=== PATIENT | male | born 1965 | race Caucasian/White ===

== ENCOUNTER → 2021-01-31 14:24 | Outpatient (CLI) | payer BC, SELFPAY ==
--- NOTE | 2021-01-31 14:29 | XR_ITS ---
PROCEDURE: XR CHEST 2V CLINICAL HISTORY: TOBACCO ABUSE COMPARISON: No exams were available for comparison FINDINGS: The cardiomediastinal silhouette and pulmonary vascularity are within normal limits. The lungs are clear without infiltrates, suspicious nodules, or pleural effusions. No acute bony abnormalities. IMPRESSION: No acute findings. Dictated by: Jose Madrid MD 01/31/2021 15:21 Jose Madrid MD in [facility] 01/31/2021 15:21
== END ==
PROVIDERS: PCP Family Medicine; Visit Provider Family Medicine
DX: Z72.0 Tobacco use (principal)
CPT/HCPCS: 71046

== ENCOUNTER → 2021-09-30 12:05 | Outpatient (CLI) | payer BC, SELFPAY | PROVIDERS: Visit Provider Nurse Practitioner | DX: Z20.822 Contact with and (suspected) exposure to COVID-19 (principal) | CPT/HCPCS: C9803; U0003; U0005 ==

== ENCOUNTER → 2022-05-23 07:05 | Outpatient (CLI) | payer BC, SELFPAY ==
[2022-05-23 20:43] LABS: Basophils # 0.1 K/mm3 (0-0.2); Basophils % 1.3 % (0.1-2.0); Eosinophils # 0.3 K/mm3 (0.0-0.4); Eosinophils % 3.6 % (0.1-12.0); Hematocrit 48.2 % (42.0-52.0); Hemoglobin 15.2 g/dL (14.1-18.0); Lymphocytes # 2.6 K/mm3 (0.7-4.5); Lymphocytes % 32.1 % (10-50); Mean Corpuscular HGB Conc 31.5 g/dL (31.8-35.4); Mean Corpuscular Hemoglobin 30.4 pg (27.0-31.2); Mean Corpuscular Volume 96.6 fl (80-94); Mean Platelet Volume 9.3 fl (7.4-10.4); Monocytes # 0.5 K/mm3 (0.1-1.0); Monocytes % 6.2 % (1.7-9.3); Neutrophils # 4.7 K/mm3 (1.8-7.8); Neutrophils % 56.8 % (37.0-80.0); Platelet Count 321 K/mm3 (142-424); Red Blood Count 4.99 M/mm3 (4.60-6.20); Red Cell Distribution Width 13.6 % (11.5-17.5); White Blood Count 8.2 K/mm3 (4.8-10.8)
[2022-05-23 20:58] LABS: Alanine Aminotransferase 21 U/L (12-78); Albumin Level 4.2 g/dl (3.5-5.0); Albumin/Globulin Ratio 1.6 (1.1-1.8); Alkaline Phosphatase 159 U/L (38-126); Anion Gap 12.9 mEq/L (5-15); Aspartate Amino Transferase 23 U/L (17-59); Bilirubin,Total 0.5 mg/dl (0.2-1.3); Blood Urea Nitrogen 15 mg/dl (9-20); Calcium 9.9 mg/dl (8.4-10.2); Carbon Dioxide 29 mmol/L (22.0-30.0); Chloride 103 mmol/L (98-107); Estimated Glomerular Filt Rate 77 ml/min (>60); GFR (African American) 93 ML/MIN (>60); Globulin 2.7 g/dL (1.3-3.2); Glucose 82 mg/dl (74-100); Potassium 4.9 mmoL/L (3.5-5.1); Sodium 140 mmol/L (136-145); Total Protein,Serum 6.9 g/dl (6.3-8.2)
== END ==
PROVIDERS: PCP Family Medicine; Visit Provider Family Medicine
DX: I10 Essential (primary) hypertension (principal); Z95.5 Presence of coronary angioplasty implant and graft
CPT/HCPCS: 80053; 85025

== ENCOUNTER 2022-08-11 10:18 | Emergency (ER) | payer BC, SELFPAY ==
[2022-08-11 11:06] VITALS: BP 101/66; PULSE 83; RESP 17; TEMP 36.8; O2SAT 99; BMI 27.9
--- NOTE | 2022-08-11 11:31 | HMH.EDURI ---
Discharge Plan Disposition Chief Complaint: Upper Respiratory Infection Prescriptions Prescriptions: No Action allopurinol 100 mg tablet 100 mg PO DAILY Qty: 90 1RF alprazolam 0.25 mg tablet 0.25 mg PO BID Qty: 60 3RF atorvastatin 20 mg tablet 20 mg PO HS Qty: 90 1RF gabapentin 300 mg capsule 300 mg PO DAILY Qty: 90 1RF lansoprazole 30 mg capsule,delayed release(DR/EC) 30 mg PO DAILY Qty: 90 1RF metoprolol tartrate 25 mg tablet 25 mg PO BID Qty: 180 1RF valsartan 160 mg tablet 160 mg PO DAILY Qty: 90 1RF ropinirole 0.25 mg tablet 0.25 mg PO HS Qty: 30 2RF clopidogrel [Plavix] 75 mg tablet 75 mg PO DAILY venlafaxine 75 mg tablet 75 mg PO BID aspirin 81 MG tablet,chewable 81 mg PO DAILY Referrals Follow up/Referrals: Itz Chang MD [Primary Care Provider] - See instructions Discharge ED Provider: Antonio Lees URI/Sore Throat HPI General Chief Complaint: Upper Respiratory Infection Stated Complaint: cough, weakness, body aches Time Seen by Provider: 08/11/22 11:28 Mode of Arrival: Ambulatory Limitations: No Limitations Description of Symptoms (Recalled from ER Triage Doc. by RN): pateint states he has had cough, chills , and joint pain for 2 days. Denies fever. History of Present Illness HPI Narrative: Patient presents with 2-day history of body aches cough chills. He denies sore throat he denies vomiting or diarrhea he denies chest pain or shortness of breath. He describes symptoms as moderate and without exacerbating or alleviating factors. Related Data Home Medications Medication Instructions Recorded Confirmed aspirin 81 mg chewable tablet 81 mg PO DAILY heart 02/08/18 08/11/22 clopidogrel 75 mg tablet (Plavix) 75 mg PO DAILY thinner 08/11/22 08/11/22 venlafaxine 75 mg tablet 75 mg PO BID depressionm 08/11/22 08/11/22 Previous Rx's Medication Instructions Recorded allopurinol 100 mg tablet 100 mg PO DAILY Arthritis #90 tabs 05/23/22 alprazolam 0.25 mg tablet 0.25 mg PO BID anxiety #60 tabs 05/23/22 atorvastatin 20 mg tablet 20 mg PO HS Cholesterol #90 tabs 05/23/22 gabapentin 300 mg capsule 300 mg PO DAILY Pain #90 caps 05/23/22 lansoprazole 30 mg capsule,delayed 30 mg PO DAILY GERD #90 caps 05/23/22 release metoprolol tartrate 25 mg tablet 25 mg PO BID blood pressure #180 05/23/22 tabs ropinirole 0.25 mg tablet 0.25 mg PO HS restless legs #30 05/23/22 tabs valsartan 160 mg tablet 160 mg PO DAILY blood pressure #90 05/23/22 tabs Allergies Allergy/AdvReac Type Severity Reaction Status Date / Time No Known Allergies Allergy Verified 08/11/22 11:13 PFSH PFSH Medical History Erectile dysfunction GERD (gastroesophageal reflux disease) History of ASCVD Hyperlipemia Laceration of knee, left Restless legs syndrome Surgical History History of back surgery History of heart artery stent History of heart artery stent Family History Other Cancer Coronary artery disease Diabetes Hyperlipidemia Hypertension Social History Smoking Status: Current every day smoker tobacco type: cigarettes alcohol intake: never substance use type: denies use current occupational status: employed Travel in the last 8 weeks: None household members: spouse housing: house ROS Obtained: Yes All systems reviewed & no additional complaints except as documented Physical Exam General General appearance: alert and in no apparent distress Head Head exam: atraumatic, normocephalic and normal inspection Eye Eye exam: Present normal appearance, PERRL and EOMI ENT ENT exam: Present normal exam, normal oropharynx, mucous membranes moist, TM's normal bilaterally and normal external ear exam Neck Neck exam: Present normal i
[2022-08-11 12:47] LABS: Coronavirus 19, PCR Not Detected (NotDetected); Influenza B, PCR Not Detected (NotDetected)
[2022-08-11 13:41] LABS: Influenza A, PCR Detected (NotDetected)
[2022-08-11 13:58] VITALS: BP 108/75; PULSE 77; RESP 14; TEMP 37.2; O2SAT 99
== END 2022-08-11 13:58 | disposition home or self-care (01) ==
LOC: UTC 10:21 → ER 10:32
PROVIDERS: Emergency Provider Emergency Medicine; PCP Family Medicine
DX: J10.1 Influenza due to other identified influenza virus with other respiratory manifestations (principal)
CPT/HCPCS: 99212; C9803; G0463; U0003; U0005

== ENCOUNTER → 2022-12-15 23:57 | Outpatient (CLI) | payer BC, SELFPAY ==
[2022-12-15 19:14] LABS: Alanine Aminotransferase 20 U/L (12-78); Albumin Level 4.7 g/dl (3.5-5.0); Albumin/Globulin Ratio 1.7 (1.1-1.8); Alkaline Phosphatase 121 U/L (38-126); Anion Gap 11.5 mEq/L (5-15); Aspartate Amino Transferase 28 U/L (17-59); Bilirubin,Total 0.6 mg/dl (0.2-1.3); Blood Urea Nitrogen 12 mg/dl (9-20); Calcium 9.2 mg/dl (8.4-10.2); Carbon Dioxide 29 mmol/L (22.0-30.0); Chloride 102 mmol/L (98-107); Estimated Glomerular Filt Rate 99 ml/min (>60); GFR (African American) 120 ML/MIN (>60); Globulin 2.8 g/dL (1.3-3.2); Glucose 99 mg/dl (74-100); Potassium 4.5 mmoL/L (3.5-5.1); Sodium 138 mmol/L (136-145); Total Protein,Serum 7.5 g/dl (6.3-8.2)
[2022-12-15 20:02] LABS: Vitamin B12 704 pg/mL (239-931)
== END ==
PROVIDERS: PCP Family Medicine; Visit Provider Family Medicine
DX: F41.9 Anxiety disorder, unspecified (principal); Z86.79 Personal history of other diseases of the circulatory system
CPT/HCPCS: 80053; 82607; 84443

== ENCOUNTER 2023-12-04 21:08 | Outpatient (CLI) | payer BC, SELFPAY ==
[2023-12-04 19:38] LABS: Chloride 105 mmol/L (98-107); Potassium 5.3 mmoL/L (3.5-5.1); Sodium 139 mmol/L (136-145)
[2023-12-04 19:41] LABS: Alanine Aminotransferase 24 U/L (12-78); Albumin Level 4.3 g/dl (3.5-5.0); Albumin/Globulin Ratio 1.7 (1.1-1.8); Alkaline Phosphatase 139 U/L (38-126); Anion Gap 9.3 mEq/L (5-15); Aspartate Amino Transferase 32 U/L (17-59); Bilirubin,Total 0.4 mg/dl (0.2-1.3); Blood Urea Nitrogen 12 mg/dl (9-20); Calcium 9.4 mg/dl (8.4-10.2); Carbon Dioxide 30 mmol/L (22.0-30.0); Estimated Glomerular Filt Rate 99 ml/min (>60); GFR (African American) 120 ML/MIN (>60); Globulin 2.6 g/dL (1.3-3.2); Glucose 118 mg/dl (74-100); Total Protein,Serum 6.9 g/dl (6.3-8.2)
== END 2023-12-04 23:59 ==
LOC: LAB.DROPOF 21:09
PROVIDERS: PCP Family Medicine; Visit Provider Family Medicine
DX: M75.52 Bursitis of left shoulder (principal)
CPT/HCPCS: 80053

== ENCOUNTER 2024-01-18 11:00 | Outpatient (RCR) | payer OTHER, SELFPAY ==
--- NOTE | 2024-01-07 13:54 | HMH.OTOPEV ---
OT Inpatient Evaluation Rehab OT Outpatient Eval Start: 01/07/24 13:36 Freq: Status: Active Protocol: Document 01/07/24 13:40 ROXDAPHNIE (Rec: 01/07/24 13:54 GIGI [id number]) E-signed By Lauren Pruitt, OT Outpatient Therapy Subjective History Subjective History 58 year old male referred to skilled OP OT services for L shld pain. No images done at this time. Patient stated to have L shld pain for ~2 months . Patient has recieved two different steriod packs from PCP with given relief ~1-2 weeks. f/u with PCP on 01/08/24 . New diagnosis of cancer in past 12 No months? Chief Complaint Pain,Weakness Symptom Type Ache Symptoms Relieved By Nothing Symptoms Aggravated By Physical Activity Prior Functional Limitations None Current Functional Limitations Reaching,Lifting,Recreation Activity Symptom Description Constant and Continuous Level of pain today (0-10) 0 Pain scale - at its best (0-10) 0 Pain scale - at its worst (0-10) 5 Shoulder/Elbow Eval Shoulder Objective Measurements Shoulder ROM Left Shoulder Abduction Active Range of 80 Motion (degrees) Shoulder Flexion Active Range of Motion 80 (degrees) Query Text: Shoulder External Rotation Active Range 40 of Motion (degrees) Shoulder Internal Rotation Active Range 50 of Motion (degrees) pain with active ROM shoulder exam left standard Shoulder MMT Shoulder Abduction Strength Grade 3- Fair- Shoulder Extension Strength Grade 3- Fair- Shoulder Flexion Strength Grade 3- Fair- Shoulder Horizontal Abduction Strength 3- Fair- Grade Shoulder Horizontal Adduction Strength 3- Fair- Grade Infraspinatus/Teres Minor Strength Grade 3- Fair- Shoulder External Rotation Strength 3- Fair- Grade Shoulder Internal Rotation Strength 3- Fair- Grade Elbow Objective Measurements QuickDASH Activities Please rate your ability to do the following activities in the last week by selecting the number below the appropriate response. 1. Open a tight or new jar. Mild difficulty 2. Do heavy embedded software programmer (e.g., wash Mild difficulty hernandez, floors). 3. Carry a shopping bag or briefcase. Moderate difficulty 4. Wash your back. Moderate difficulty 5. Use a knife to cut food. Mild difficulty 6. Recreational activities in which you Moderate difficulty take some force or impact through your arm, shoulder, or hand (e.g., golf, hammering, tennis, etc.). 7. During the past week, to what extent Moderately has your arm, shoulder or hand problem interfered with your normal social activities with family, friends, neighbors or groups? 8. During the past week, were you Moderately limited limited in your work or other regular daily activites as a result of your arm, shoulder or hand problem? 9. Arm, shoulder or hand pain. Moderate 10. Tingling (pins and needles) in your None arm, shoulder or hand. 11. During the past week, how much Mild difficulty difficulty have you had sleeping because of the pain in your arm, shoulder or hand? Quick DASH 27 OT Outpatient Assessment Impairments Problems/Impairments Impaired Range of Motion, Impaired Strength,Subjective C /O Pain Prognosis Rehab Potential Good Clinical Impression Consistent with Diagnosis Yes Short Term Goals Number of Weeks 2 Increase Range of Motion Yes: Improve AROM of L UE shld flex: 120; abd: 120; er: 50; ir: 60 Increase Strength Yes: Improve L UE shld strength to 3 to 3+/5 throughout Decrease Subjective C/O Pain Yes: 4/10 pain at worst Patient to be Ind w/ HEP Yes: AAROM Patient to be Ind w/ Advanced HEP Yes: Strengthening Improve Quick Dash Score Yes: 25 Senior Living Goals Number of Weeks 4 Increase Range of Motion Yes: Improve AROM of L UE shld flex: 140; abd: 140; er: 70; ir: 70 Increase Strength Yes: Improve L UE shld strength to 3+ to 4-/5 throughout Decrease Subjective C/O Pain Yes: 3/10 pain at worst Patient to be Ind w/ HEP Yes: AROM Patient to be Ind w/ Advanced HEP Yes: Advance strengthening Improve Quick Dash Score Yes: 20 Outpatient Therapy Plan of Care Treatment Plan May Include Therapeutic Exercise Including Home Yes Exercise Program Manual Therapy Techniques Yes Therapeutic Activities to Return to Yes Previous Functional/Work Level Thermal Modalities Yes Electrical Stimulation Yes Ultrasound/Phonophoresis Yes Iontophoresis Yes Eval/Re-Eval Yes Aquatic Therapy Yes Frequency Times per week 1-2x/wk Duration Number of Weeks 4 weeks Addendums This patient is a candidate for social No or vocational rehab? Patient/Guardian verbally acknowledges Yes understanding of treatment program and consents to further treatment? Patient/Guardian verbally acknowledges Yes understanding of diagnosis, prognosis and goals for treatment? Eval Complexity OT Charge 16574 - Low Complexity PHYSICIAN CERTIFICATION: I certify the specified therapy services for Pranav D Tay are required, authorized, and reviewed every 30 days.
== END 2024-01-18 12:00 | disposition home or self-care (01) ==
LOC: OT 11:00
PROVIDERS: Visit Provider Family Medicine
DX: M25.512 Pain in left shoulder (principal); M75.52 Bursitis of left shoulder
CPT/HCPCS: 97110; 97165

== ENCOUNTER 2024-06-09 09:54 | Outpatient (CLI) | payer BC, SELFPAY | END 2024-06-09 23:59 | disposition home or self-care (01) | LOC: LAB.DROPOF 06-10 10:05 | PROVIDERS: PCP Nurse Practitioner; Visit Provider Nurse Practitioner | DX: R30.0 Dysuria (principal) | CPT/HCPCS: 87086 ==

== ENCOUNTER 2024-06-23 11:15 | Outpatient (CLI) | payer BC, SELFPAY ==
[2024-06-23 19:47] LABS: Basophils # 0.1 K/mm3 (0-0.2); Basophils % 1.3 % (0.1-2.0); Eosinophils # 0.4 K/mm3 (0.0-0.4); Eosinophils % 5.2 % (0.1-12.0); Hematocrit 46.6 % (42.0-52.0); Hemoglobin 15.5 g/dL (14.1-18.0); Lymphocytes # 2.4 K/mm3 (0.7-4.5); Lymphocytes % 32.4 % (10-50); Mean Corpuscular HGB Conc 33.3 g/dL (31.8-35.4); Mean Corpuscular Hemoglobin 31.2 pg (27.0-31.2); Mean Corpuscular Volume 93.6 fl (80-94); Mean Platelet Volume 9.1 fl (7.4-10.4); Monocytes # 0.4 K/mm3 (0.1-1.0); Monocytes % 5.7 % (1.7-9.3); Neutrophils # 4.1 K/mm3 (1.8-7.8); Neutrophils % 55.4 % (37.0-80.0); Platelet Count 240 K/mm3 (142-424); Red Blood Count 4.98 M/mm3 (4.60-6.20); Red Cell Distribution Width 13.8 % (11.5-17.5); White Blood Count 7.4 K/mm3 (4.8-10.8)
[2024-06-23 20:52] LABS: Alanine Aminotransferase 20 U/L (12-78); Albumin Level 4.2 g/dl (3.5-5.0); Albumin/Globulin Ratio 1.7 (1.1-1.8); Alkaline Phosphatase 108 U/L (38-126); Anion Gap 8.5 mEq/L (5-15); Aspartate Amino Transferase 26 U/L (17-59); Bilirubin,Total 0.7 mg/dl (0.2-1.3); Blood Urea Nitrogen 11 mg/dl (9-20); Calcium 9.6 mg/dl (8.4-10.2); Carbon Dioxide 30 mmol/L (22.0-30.0); Chloride 105 mmol/L (98-107); Chol/HDL Ratio 3.7 (1-3.5); Cholesterol 143 mg/dl (140-200); Estimated Glomerular Filt Rate 86 ml/min (>60); GFR (African American) 104 ML/MIN (>60); Globulin 2.5 g/dL (1.3-3.2); Glucose 105 mg/dl (74-100); HDL Cholesterol 39 mg/dl (40-60); Potassium 5.5 mmoL/L (3.5-5.1); Sodium 138 mmol/L (136-145); Total Protein,Serum 6.7 g/dl (6.3-8.2); Triglycerides 101 mg/dl (30-150); VLDL Cholesterol 20 mg/dL (0-40)
[2024-06-23 20:55] LABS: Creatinine,Urine Random 47 mg/dL (Not Estab.)
[2024-06-23 21:00] LABS: Microalbumin < 6.000 mg/L (0-16.7)
[2024-06-23 21:03] LABS: Direct LDL Cholesterol 81.77 mg/dL (100-129)
[2024-06-23 21:22] LABS: Prostate Specific Ag Screen 0.4 ng/ml (0.0-4.0)
[2024-06-23 21:42] LABS: Vitamin B12 932 pg/mL (239-931)
== END 2024-06-23 23:59 | disposition home or self-care (01) ==
LOC: LAB.DROPOF 06-24 10:01
PROVIDERS: PCP Nurse Practitioner; Visit Provider Nurse Practitioner
DX: E78.5 Hyperlipidemia, unspecified (principal); Z12.5 Encounter for screening for malignant neoplasm of prostate; K21.9 Gastro-esophageal reflux disease without esophagitis; R31.0 Gross hematuria; Z86.79 Personal history of other diseases of the circulatory system
CPT/HCPCS: 80050; 80053; 80061; 82043; 82570; 82607; 83036; 84443; 85025; G0103

== ENCOUNTER 2024-06-30 10:14 | Outpatient (CLI) | payer BC, SELFPAY ==
[2024-06-30 19:22] LABS: Chloride 106 mmol/L (98-107); Potassium 4.9 mmoL/L (3.5-5.1); Sodium 139 mmol/L (136-145)
[2024-06-30 19:25] LABS: Anion Gap 9.9 mEq/L (5-15); Blood Urea Nitrogen 14 mg/dl (9-20); Calcium 9.4 mg/dl (8.4-10.2); Carbon Dioxide 28 mmol/L (22.0-30.0); Estimated Glomerular Filt Rate 99 ml/min (>60); GFR (African American) 119 ML/MIN (>60); Glucose 106 mg/dl (74-100)
== END 2024-06-30 23:59 | disposition home or self-care (01) ==
LOC: LAB.DROPOF 07-01 10:14
PROVIDERS: PCP Nurse Practitioner; Visit Provider Nurse Practitioner
DX: E87.5 Hyperkalemia (principal)
CPT/HCPCS: 80048

== ENCOUNTER 2024-09-16 16:21 | Outpatient (CLI) | payer BC, SELFPAY ==
--- NOTE | 2024-09-16 16:41 | MR_ITS ---
PROCEDURE INFORMATION: Exam: MR Left Upper Extremity Joint Without and With Contrast; Shoulder Exam date and time: 09/16/2024 5:08 PM Age: 59 years old Clinical indication: Shoulder; Left; Patient HX: Pain x 6 months; Additional info: Left shoulder pain TECHNIQUE: Imaging protocol: Magnetic resonance imaging of the left upper extremity without and with contrast. Exam focused on the shoulder. Contrast material: ISOVUE; Contrast volume: 20 ml; Contrast route: IV; COMPARISON: CR XR CHEST 2V 01/31/2021 2:31 PM FINDINGS: Bones/joints: There is moderate AC joint arthrosis with fluid like signal changes along with enhancement involving the opposing bone margins that has been associated with symptomatology in raises possibility of distal clavicular osteolysis. There is a small focus of bone marrow edema along the lesser tuberosity likely degenerative in nature 2nd biomechanical friction. Glenoid labrum: There is a complex SLAP tear extending both anteriorly into the anterior labrum extending to the mid glenoid and posteriorly into the posterosuperior labrum. There is an adjacent 2.5 x 1.1 cm paralabral cyst adjacent to the posterosuperior labrum extending into the spingoglenoid notch. Supraspinatus tendon: There is a small partial-thickness insertional tear involving the supraspinatus appears intrasubstance. Infraspinatus tendon: Unremarkable. No evidence of tear. Subscapularis tendon: There is a partial-thickness insertional tear involving the subscapularis tendon best seen in the axial plane. Teres minor tendon: Unremarkable. No evidence of tear. Tendon of biceps brachii: There is tendinopathy with partial-thickness intrasubstance longitudinal tear of the biceps tendon. Glenohumeral ligaments: Unremarkable. Soft tissues: Unremarkable. IMPRESSION: 1. Complex SLAP tear extending into the anterior superior and posterosuperior labrum with associated 2.5 x 1.1 cm paralabral cyst adjacent to the posterior labrum extending into the spinoglenoid notch. 2. Tendinopathy with small partial-thickness tears involving the supraspinatus tendon, subscapularis tendon and biceps tendon. 3. Pronounced AC joint arthrosis with accompanying fluid-like signal changes and enhancement that has been associated with symptomatology.
[2024-09-16 16:48] LABS: Blood Urea Nitrogen 8 mg/dl (9-20); Estimated Glomerular Filt Rate 86 ml/min (>60); GFR (African American) 104 ML/MIN (>60)
[2024-09-16] MEDS: SODIUM CHLORIDE 0.9% 10ML SYR (RAD ONLY) 10 ML IV (17:49)
[2024-09-16] MEDS: GADOTERIDOL INJ 20ML SYRINGE 20 ML IV (17:49)
== END 2024-09-16 23:59 | disposition home or self-care (01) ==
LOC: RAD 16:22
PROVIDERS: PCP Family Medicine; Visit Provider Family Medicine
DX: M25.512 Pain in left shoulder (principal); Z95.5 Presence of coronary angioplasty implant and graft; G89.29 Other chronic pain
CPT/HCPCS: 36415; 73223; 82565; 84520; A9576

== ENCOUNTER 2025-05-12 13:07 | Outpatient (CLI) | payer BC, SELFPAY ==
--- OUTSIDE RECORDS SUMMARY | 2025-05-12 17:45 | XMS_ITS | Encounter Summary ---
Author Organization [facility] Address [address] [place] [address] Care Team Providers Care Industrial Diamond Polisher Name Role Phone Bruno Chang MD Primary Care Provider [phone] Reason for Referral * MRI/CAT Scan (Routine) - Pending Review Specialty Diagnoses / Procedures Referred By Contac t Referred To Contact Radiology Diagnoses Calcific tendinitis of right shoulder Procedures MRI SHOULDER RIGHT WO CONTRAST Stoney Vasquez APRN [address] [place] [address] Phone: tel: fax: Referral ID Status Reason Start Date Expiration Date V isits Requested Visits Authorized [id number] Pending Review 05/12/2025 05/12/2026 1 1 Reason for Visit * Reason Comments Pain Encounter Details Date Type Department Care Team (Late st Contact Info) Description 05/12/2025 5:45 PM EDT Office Visit [facility] [place] [address] Stoney Vasquez APRN [address] [place] [address] Calcific tendinitis of right shoulder (Primary Dx) [...] of this encounter Progress Notes * Stoney VasquezCADE - 05/12/2025 5:45 PM EDT Images from [...] the affected shoulder. Additionally, the patient sought attending ambulatory care, where he was informed that his shoulder [...] 2 steroid injections, oral steroids, home exercises, attending ambulatory care (without significant improvement) - MRI will be ordered to confirm diagnosis and check for underlying rotator cuff tear - MRI results will guide further treatment options (including surgery or less aggressive interventions) - MRI will be scheduled, and patient will be contacted by editorial assistant to arrange appointment - Advised to [...] cuff insertion site Please note that this nursing admin was created using voice recognition software. Any errors are unintentional and may be due to voice recognition nursing admin. The provider informed the patient (or legal circulation sales representative) on the use of the ambient listening artificial intelligence tool, [employer] to obtain consent to its use. It [...] of such information, the patient (or legal circulation sales representative), and each individual in attendance with the patient, consented to the use of the AI tool. Stoney Vasquez APRN documented in this encounter Plan of Treatment Upcoming Encounters Date Type Department Care Team (Late st Contact Info) Description 07/17/2025 1:00 PM EDT Office Visit [facility] [address] [place] [phone] Beto Siegel MD [address] [place] [id number] Scheduled Orders Name Type Priority Associated Diagnoses Orde r Schedule MRI SHOULDER RIGHT WO CONTRAST Imaging Routine Calcific tendinitis of right shoulder 1 Occurrences starting 05/12/2025 until 05/12/2026 [place] SERVICES PROVIDED OFFICE OTH/THN REG SCHED HOURS [place] Charge Routine Calcific tendinitis of right shoulder Ordered: 05/12/2025 documented as of this encounter Results * XR SHOULDER RIGHT 3 VIEWS (05/12/2025 5:59 PM EDT) Narrative GenericuserMatthew - 05/12/2025 5:59 PM EDT Please see physician's note from office encounter for x-ray imaging result Stoney Vasquez APRN IMG DIAGNOSTIC IMAGING ORDERAB LES Final Result documented in this encounter Visit Diagnoses Diagnosis Calcific tendinitis of right shoulder- Primary Calcifying tendinitis of shoulder Right shoulder pain, unspecified chronicity documented in this encounter Care Teams Industrial Diamond Polisher Relationship Specialty Start Date End Date Bruno Chang MD [address] [place] [address] [address] [place] [address] PCP - General Family Medicine 02/19/12 documented as of this encounter
--- OUTSIDE RECORDS SUMMARY | 2025-05-12 18:00 | XMS_ITS | Encounter Summary ---
Author Organization [facility] Address [address] [place] [address] Care Team Providers Care Exceptional Children Teacher Name Role Phone Bruno Chang MD Primary Care Provider [phone] [phone] Encounter Details Date Type Department Care Team (Latest Contact Info) Description 05/12/2025 6:00 PM EDT Ancillary Procedure [address] [id number] Stoney Vasquez APRN [address] [place] [phone] Right shoulder pain, unspecified chronicity Social History Tobacco Use Types Packs/Day Years [...] on file documented as of this encounter Plan of Treatment Upcoming Encounters Date Type Department Care Team (Late st Contact Info) Description 07/17/2025 1:00 PM EDT Office Visit [facility] [address] [place] [address] Beto Siegel MD [address] [place] [phone] documented as of this encounter Procedures Procedure Name Priority Date/Time Associated Diagnosis Comments XR SHOULDER RIGHT 3 VIEWS Routine 05/12/2025 5:59 PM EDT Right shoulder pain, unspecified chronicity documented in this encounter Results * XR SHOULDER RIGHT 3 VIEWS (05/12/2025 5:59 PM EDT) Narrative Genericuser, Matthew - 05/12/2025 5:59 PM EDT Please see physician's note from office encounter for x-ray imaging result Stoney Vasquez APRN IMG DIAGNOSTIC IMAGING ORDERAB LES Final Result documented in this encounter Visit Diagnoses Diagnosis Right shoulder pain, unspecified chronicity documented in this encounter Care Teams Exceptional Children Teacher Relationship Specialty Start Date End Date Bruno Chang MD [address] [place] [address] [address] [place] [phone] PCP - General Family Medicine 02/19/12 documented as of this encounter
[2025-05-12 20:01] LABS: Albumin Level 4.2 g/dl (3.5-5.0); Chloride 104 mmol/L (98-107)
[2025-05-12 20:02] LABS: Potassium 4.8 mmoL/L (3.5-5.1); Sodium 141 mmol/L (136-145)
[2025-05-12 20:04] LABS: Blood Urea Nitrogen 12 mg/dl (9-20); Creatinine,Serum 0.70 mg/dl (0.66-1.25); Estimated Glomerular Filt Rate 115 ml/min (>60); GFR (African American) 139 ML/MIN (>60)
[2025-05-12 20:05] LABS: Alanine Aminotransferase 17 U/L (12-78); Albumin/Globulin Ratio 1.7 (1.1-1.8); Alkaline Phosphatase 105 U/L (38-126); Anion Gap 11.8 mEq/L (5-15); Aspartate Amino Transferase 24 U/L (17-59); Bilirubin,Total 0.5 mg/dl (0.2-1.3); Calcium 9.6 mg/dl (8.4-10.2); Carbon Dioxide 30 mmol/L (22.0-30.0); Globulin 2.5 g/dL (1.3-3.2); Glucose 86 mg/dl (74-100); Total Protein,Serum 6.7 g/dl (6.3-8.2)
--- OUTSIDE RECORDS SUMMARY | 2025-05-13 12:38 | XMS_ITS | Clinical Summary ---
Author Organization [facility] Address [address] [place] [address] Care Team Providers Care Student Success Advisor Name Role Phone Provider, Unknown Primary Care Provider Unavaila ble Allergies No known active allergies Medications ticagrelor (BRILINTA) 90 mg Tablet Take 90 mg by mouth 2 times daily. Active atorvastatin (LIPITOR) 40 mg Tablet Take 40 mg by mouth nightly. Active allopurinol (ZYLOPRIM) 100 mg tablet Take 50 mg by mouth 2 times daily. Active ALPRAZolam (XANAX) 0.25 mg tablet Take 0.25 mg by mouth 2 times daily. Take 1 tab in AM and 2 tabs at night Active aspirin 81 mg tablet Take 81 mg by mouth daily. Active gabapentin (NEURONTIN) 300 mg capsule Take 300 mg by mouth nightly. Active lansoprazole (PREVACID) 30 mg Capsule, Delayed Release(E.C.) Take 30 mg by mouth daily. Active glucosamine/cho ndr gramajo A sod (OSTEO BI-FLEX PO) Take by mouth. Take 1 tab by mouth daily Active pramipexole (MIRAPEX) 1 mg Tablet Take 1 mg by mouth nightly. Active traZODone (DESYREL) 50 mg tablet Take 50 mg by mouth nightly at bedtime. Active venlafaxine (EFFEXOR) 75 mg tablet Take 75 mg by mouth 2 times daily. Active losartan (COZAAR) 50 mg Tablet Take 1 Tab by mouth daily. 12/06/2018 Active metoprolol succinate (TOPROL) 25 mg XL tablet Take 1 Tab by mouth daily. 30 Tab 3 12/07/2018 Active Active Problems Problem Noted Date Diagnosed Date Syncope 12/05/2018 Family History Medical History Relation Name Comments Heart Problems Maternal Grandfather Heart Problems Maternal Grandmother Stroke Paternal Grandfather Stroke Paternal Grandmother Relation Name Status Comments Maternal Grandfather Maternal Grandmother Paternal Grandfather Paternal Grandmother Social History Tobacco Use Types Packs/Day Years Used Date Smoking Tobacco: Every Day Cigarettes 1 35 Smokeless Tobacco: Never Alcohol Use Standard Drinks/Week Comments No 0 (1 standard drink = 0.6 oz pur e alcohol) Sex and Gender Information Value Date Recorded Sex Assigned at Not on file Legal Sex Male 3:18 PM EDT Gender Identity Not on file Sexual Orientation Not on file Last Filed Vital Signs Vital Sign Reading Time Taken Comments Blood Pressure 116/52 12/06/2018 11:13 AM EDT Pulse 76 12/06/2018 11:13 AM EDT Temperature 36.7 C (98.1 F) 12/06/2018 11:13 AM EDT Respiratory Rate 16 12/06/2018 11:13 AM EDT Oxygen Saturation 93% 12/06/2018 11:13 AM EDT Inhaled Oxygen Concentration - - Weight 86.9 kg (191 lb 9.6 oz) 12/05/2018 6:15 P M EDT Height 182.9 cm (6') 12/05/2018 6:15 PM EDT Body Mass Index 25.99 12/05/2018 6:15 PM EDT Plan of Treatment Not on file Insurance ANTHEM ANTHEM Advance Directives For more information, please contact: [phone] * Full Code (Latest Code Status on File) Date Activated Date Inactivated Comments 12/05/2018 6:30 PM Care Teams Student Success Advisor Relationship Specialty Start Date End Date Provider, Unknown PCP - General 12/05/18
--- OUTSIDE RECORDS SUMMARY | 2025-05-13 12:38 | XMS_ITS | Clinical Summary ---
Author Organization [facility] Address [address] [address] Care Team Providers Care Tugboat Mate Name Role Phone Unavailable Primary Care Provider Unavailabl e Social History Tobacco Use Types Packs/Day Years Used Date Smoking Tobacco: Never Assessed Sex and Gender Information Value Date Recorded Sex Assigned at Not on file Legal Sex Male 9:52 PM EDT Gender Identity Not on file Sexual Orientation Not on file Plan of Treatment Health Maintenance Due Date Last Done Comments Hepatitis C Screening 1965 DTap,Tdap,and Td (1 - Tdap) 01/26/1975 Colonoscopy 01/26/2009 PSA YEARLY 01/26/2014 Pneumococcal 50+ (1 of 1 - PCV) 01/26/2014 Shingrix (#1) 01/26/2014 Influenza Vaccine (#1) 2025 RSV Vaccine (60+ or ) (1 - 1-dose 75+ series) 01/26/2039 HPV Aged Out No longer eligi ble based on patient's age to complete this topic Meningococcal conjugate terrell nt 4 (MCV4) Aged Out No longer eligible b ased on patient's age to complete this topic RSV Immunization (<20 months) Aged Out No longer eligible based on patient's age to complete this topic
--- OUTSIDE RECORDS SUMMARY | 2025-05-13 12:38 | XMS_ITS | Encounter Summary ---
Author Organization [facility] Address [address] [place] [address] Care Team Providers Care Bookkeeping Clerk Name Role Phone Provider, Unknown Primary Care Provider Unavaila ble Encounter Details Date Type Department Care Team (Late st Contact Info) Description 12/05/2018 [facility] [address] [place], [place] [address] Dominic Wray MD [address] [address] Social History Tobacco Use Types Packs/Day Years [...] as of this encounter Plan of Treatment Not on file documented as of this encounter Visit Diagnoses Not on filedocumented in this encounter Care Teams Bookkeeping Clerk Relationship Specialty Start Date End Date Provider, Unknown PCP - General 12/05/18 documented as of this encounter
--- OUTSIDE RECORDS SUMMARY | 2025-05-13 12:38 | XMS_ITS | Clinical Summary ---
Author Organization [facility] Address [address] [facility] [place] [address] Phone Care Team Providers Care Public Health Aides Teacher Name Role Phone Bruno Chang MD Primary Care Provider [phone] Allergies No known active allergies Medications allopurinol (ZYLOPRIM) 100 mg tablet Take 50 mg by mouth 2 times daily. Active ALPRAZolam (XANAX) 0.25 mg tablet Take 0.25 mg by mouth. Takes 1 tab in AM and 2 tabs at night Active pramipexole (MIRAPEX) 1 mg Oral Tablet Take 1 mg by mouth nightly. Active aspirin 81 mg Oral Tablet, Chewable Take 1 Tab by mouth daily. 6 Active gabapentin (NEURONTIN) 300 mg Oral Capsule Take 300 mg by mouth nightly. Active losartan (COZAAR) 50 mg Oral Tablet Take 25 mg by mouth daily. Active glucosamine/chondr gramajo A sod (OSTEO BI-FLEX ORAL) Take 1 Tab by mouth daily. Active venlafaxine (EFFEXOR) 75 mg Oral Tablet Take 75 mg by mouth 2 times daily. Active cyanocobalamin 1,000 mcg Oral Tablet Take 1,000 mcg by mouth daily. Active nitroGLYCERIN (NITROSTAT) 0.4 mg SL Tablet, SublingualIndicatio ns:NSTEMI (non-ST elevated myocardial infarction) (HCC),CAD, multiple vessel DISSOLVE 1 TABLET UNDER THE TONGUE NEEDED FOR CHEST PAIN. REPEAT EVERY 5 MINUTES 3 TIMES. IF NO RELIEF GO TO ER. 25 Tablet 1 4 Active clopidogreL (PLAVIX) 75 mg Oral TabletIndications:A SHD (arteriosclerotic heart disease) Take 1 Tablet by mouth once daily. 90 Tablet 1 5 Active carvediloL (COREG) 6.25 mg Oral TabletIndications:I schemic cardiomyopathy Take 1 Tablet by mouth twice daily. 200 Tablet 1 5 Active atorvastatin (LIPITOR) 40 mg Oral Tablet Take 1 Tablet by mouth nightly. 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 H/O protein S deficiency 12/12/2018 Anxiety 06/02/2016 Depression 06/02/2016 Hyperuricemia 06/02/2016 Overview (06/02/2016): On Allopurinol Denies Dx or Hx of Sxs of Gout Primary osteoarthritis involving multiple joints 06/02/2016 Restless leg syndrome 06/02/2016 Overview (06/02/2016): On pramipexole Primary insomnia 06/02/2016 Tobacco abuse 06/02/2016 Overview (06/02/2016): 1 ppd since age 15 Refuses to quit 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 06/02/2016 Essential hypertension 06/01/2016 NSTEMI (non-ST elevated myocardial infarction) 0 06/01/2016 Overview (06/01/2016): 06/01/16 CAD (coronary artery disease) 05/18/2016 Overview (03/10/2019): 12/2018: Normal regular stress test Iliac artery bleed, right Acute [place], inferior wall Cardiac arrest with ventricular fibrillation PEA (Pulseless electrical activity) ASHD (arteriosclerotic heart disease) Lactic acidosis Leukocytosis Aspiration pneumonia of right upper lobe Encounters Date Type Department Care Team Description 05/12/2025 6:00 [place] [address] Stoney Vasquez APRN Right shoulder pain, unspecified chronicity 05/12/2025 5:45 PM EDT Office Visit [facility] [place] [address] Stoney Vasquez APRN Calcific tendinitis of right shoulder (Primary Dx) 03/02/2025 [place] [address] Beto Siegel MD Medication Refill from Last 3 Months Immunizations Immunization Administration Dates Next Due Td, Unspecified Formulation 05/30/2013 Surgical History Surgery Date Site/Laterality Comments THROMBECTOMY 06/02/2016 Right REPAIR RIGHT FEMORAL ARTERY; Surgeon: Saravanan Garcias MD; Location: [facility] OR; Service: Vascular DENTAL SURGERY Full upper denture , bridge x 2 on bottom BACK SURGERY x 2 for herniated discs lower back KNEE ARTHROSCOPY 07/04/2018 Left LEFT KNEE ARTHROSCOPY PARTIAL LATERAL MENISCECTOMY, CHONDROPLASTY MEDIAL FEMORAL CONDYLE; Surgeon: Ellis Hernández MD; Location: [facility]; Service: Orthopedics KNEE SURGERY meniscus 2018 CORONARY ANGIOPLASTY WITH STENT PLACEMENT 11/28/[address] Wayne: Occlusion of proximal RCA treated with LEX. Patent LAD stent. Severe elevation of LVEDP-left ventriculography not performed. CORONARY ANGIOPLASTY WITH STENT PLACEMENT 11/29/[address] Wayne: Subacute stent thrombosis treated with thrombectomy, additional PTCA, LEX x 2. Elevated left heart filling pressures with preserved cardiac output. Moderate LV dysfunction with PB AK. CORONARY ANGIOPLASTY WITH STENT PLACEMENT 06/02/2016 Dr Bailey: Critical stenosis mid LAD with successful PCI using a drug eluting stent,Moderately diminished LV systolic function with an ischemic cardiomyopathy Medical History Medical History Date Comments Depression Gout Hypertension Echo 04/16/19: EF 45-50% LV wall thickness is normal, RV normal, RA normal, LA normal, MV mild mitral regurg, TV normal, PV trace to mild regurg, A normal CAD (coronary artery disease) 05/2016: Normal regular stress test Smoker 1 PPD since age 13 Hyperlipidemia [place] (myocardial infarction) (HCC) 2016 had stent x 1 for this Angina pectoris 2015 none since [place] in 2015 Arthritis carine knees Full dentures Full upper dentu re , bridge x 2 on bottom Dental bridge present Full upper denture , bridge x [address] elevation myocardia l infarction (STEMI) of inferior wall (HCC) 11/2018 NSTEMI with LEX LAD Family History Medical History Relation Name Comments Heart Attack Father High Blood Pressure Father High Cholesterol Father Heart Attack Maternal Grandfather Heart Attack Maternal Grandmother No Known Problems Mother Stroke Paternal Grandfather Stroke Paternal Grandmother Anesth Problems Neg Hx Relation Name Status Comments Brother Alive Father Alive Maternal Grandfather Maternal Grandmother Mother Paternal Grandfather Paternal Grandmother Social History Tobacco Use Types Packs/Day Years Used Date Smoking Tobacco: Every Day Cigarettes 1 47.7 Started: [birth year]/1977 Smokeless Tobacco: Never Tobacco Cessation:Ready to Q uit: Not Asked; Counseling Given: Not Answered Alcohol Use Standard Drinks/Week Comments No 0 (1 standard drink = 0.6 oz pur e alcohol) Sex and Gender Information Value Date Recorded Sex Assigned at Not on file Legal Sex Male 3:28 AM EDT Gender Identity Not on file Sexual Orientation Not on file Obstetrics History Last Filed Vital Signs Vital Sign Reading Time Taken Comments Blood Pressure 124/72 07/25/2024 1:04 PM EST Pulse 88 07/25/2024 1:04 PM EST Temperature 36.2 C (97.2 F) 06/21/2020 7:57 AM EDT Respiratory Rate 14 06/21/2020 7:57 AM EDT Oxygen Saturation 98% 07/25/2024 1:04 PM EST Inhaled Oxygen Concentration - - Weight 87.1 kg (192 lb) 07/25/2024 1:04 PM EST Height 182.9 cm (6') 07/25/2024 1:04 PM EST Body Mass Index 26.04 07/25/2024 1:04 PM EST Plan of Treatment Upcoming Encounters Date Type Department Care Team (Late st Contact Info) Description 07/17/2025 1:00 PM EDT Office Visit [facility] [address] [place] [address] Beto Siegel MD [address] [place] [address] Health Maintenance Due Date Last Done Comments Annual Wellness Exam 01/26/1967 Hepatitis C Screening 01/26/1982 Pneumococcal Vaccine 50+ (1 of 2 - PCV) 01/26/1983 Cologuard 01/26/2009 Colon Cancer Screening 01/26/2009 Colonoscopy 01/26/2009 FIT 01/26/2009 Sigmoidoscopy 01/26/2009 Virtual Colonography 01/26/2009 DTaP/TDaP/Td (1 - Tdap) 05/31/2013 05/30/2013 Low Dose Lung Cancer Screening 01/26/2014 Zoster (1 of 2) 01/26/2014 RSV or 60+ (1 - Ris k 60-74 years 1-dose series) 2024 COVID-19 Vaccine (4 - 2023-2 5 season) 2024 08/22/2021, 11/06/2020, 10/07/2020 Influenza Vaccine (#1) 2025 Hepatitis B Vaccine Aged Out No longe r eligible based on patient's age to complete this topic Meningococcal B Vaccine Aged Out No l onger eligible based on patient's age to complete this topic Medical Devices Implanted Type Area Coloring Room Worker Device Identifier Shelf Expiration Date Model / Serial / Lot Stent Xience Alpine Drug Eluting 3.5mm X 12mm - [id number] Implanted:Qty: 1 on 06/02/2016 by Sergio Bailey MD at [facility] NA: [facility] LAB:VASC DEV [id number] / / [id number] Stent Xience Lillian Evrlmus Eluting Coronary 4.00mm X 33mm - [id number] Implanted:Qty: 1 on 11/28/2018 by John Wayne MD at [facility]: [facility]CA [facility]:VASC DEV [id number] / / [id number] Stent Xience Lillian Evrlmus Eluting Coronary 4.00mm X 23mm - [id number] Implanted:Qty: 1 on 11/29/2018 by John Wayne MD at [facility]: [facility] [employer]:VASC DEV [id number] / / [id number] Stent Xience Lillian Evrlmus Eluting Coronary 4.00mm X 18mm - [id number] Implanted:Qty: 1 on 11/29/2018 by John Wayne MD at [facility] N/A: RCA [place] LAB:VASC DEV [id number] / / [id number] Procedures Procedure Name Priority Date/Time Associated Diagnosis Comments XR SHOULDER RIGHT 3 VIEWS Routine 05/12/2025 5:59 PM EDT Right shoulder pain, unspecified chronicity from Last 3 Months Results * XR SHOULDER RIGHT 3 VIEWS (05/12/2025 5:59 PM EDT) Narrative Matthew Montemayor - 05/12/2025 5:59 PM EDT Please see physician's note from office encounter for x-ray imaging result Stoney Vasquez APRN IMG DIAGNOSTIC IMAGING ORDERAB LES Final Result from Last 3 Months Insurance [facility] PPO GENERIC WORKERS' COMP GENERIC WORKERS' COMP ANTHEM PPO ANTHEM PPO [place] PPO Advance Directives For more information, please contact: [phone] * Full Code (Latest Code Status on File) Date Activated Date Inactivated Comments 11/29/2018 12:07 AM 12/04/2018 6:07 PM * Full Code Date Activated Date Inactivated Comments 07/04/2018 4:43 PM 07/04/2018 10:02 PM * Full Code Date Activated Date Inactivated Comments 06/01/2016 11:49 PM 06/04/2016 7:26 PM Care Teams Public Health Aides Teacher Relationship Specialty Start Date End Date Bruno Chang MD [address] [place] [address] PCP - General Family Medicine 02/19/12
--- OUTSIDE RECORDS SUMMARY | 2025-05-13 12:38 | XMS_ITS | Referral Summary ---
Author Organization [facility] Address [address] [place] [address]. [place] [address] Care Team Providers Care Cleater Name Role Phone Unavailable Primary Care Provider Unavailabl e Social History Tobacco Use Types Packs/Day Years Used Date Smoking Tobacco: Never Assessed Sex and Gender Information Value Date Recorded Sex Assigned at Not on file Legal Sex Male 9:52 PM EDT Gender Identity Not on file Sexual Orientation Not on file Plan of Treatment Not on file
--- OUTSIDE RECORDS SUMMARY | 2025-05-13 12:38 | XMS_ITS | Encounter Summary ---
Author Organization [facility] Address [address] [place] [address] Care Team Providers Care Kaiawhina Name Role Phone Provider, Unknown Primary Care Provider Unavaila ble Encounter Details Date Type Department Care Team (Late st Contact Info) Description 12/05/2018 [facility] [address] [place], [place] [id number] Katie Guerrero RN [address] [phone] Social History Tobacco Use Types Packs/Day Years [...] on filedocumented in this encounter Care Teams Kaiawhina Relationship Specialty Start Date End Date Provider, Unknown PCP - General 12/05/18 documented as of this encounter
== END 2025-05-12 23:59 | disposition home or self-care (01) ==
LOC: LAB.DROPOF 05-13 12:34
PROVIDERS: PCP Family Medicine; Visit Provider Family Medicine
DX: Z04.89 Encounter for examination and observation for other specified reasons (principal); Z86.79 Personal history of other diseases of the circulatory system
CPT/HCPCS: 80053

== ENCOUNTER 2025-05-19 06:48 | Outpatient (CLI) | payer BC, SELFPAY ==
--- OUTSIDE RECORDS SUMMARY | 2025-05-12 17:45 | XMS_ITS | Encounter Summary ---
Author Organization [facility] Address [address] [place] [address] Care Team Providers Care Tar Processing Technician Name Role Phone Bruno Chang MD Primary Care Provider [phone] Reason for Referral * MRI/CAT Scan (Routine) - AFF Authorized Specialty Diagnoses / Procedures Referred By Contac t Referred To Contact Orthopedic Surgery Diagnoses Calcific tendinitis of right shoulder Procedures MRI SHOULDER RIGHT WO CONTRAST Stoney Vasquez APRN [address] [place] [address] Phone: tel: fax: [place] [address] Phone: tel: fax: Referral ID Status Reason Start Date Expiration Date Visits Requested Visits Authorized [id number] AFF Authorized 05/12/2025 05/12/2026 1 1 Reason for Visit * Reason Comments Pain Encounter Details Date Type Department Care Team (Late st Contact Info) Description 05/12/2025 5:45 PM EDT Office Visit [facility] [place] [address] Stoney Vasquez APRN [address] [phone] Calcific tendinitis of right shoulder (Primary Dx) Social History Tobacco Use Types Packs/Day Years Used Date Smoking Tobacco: Every Day Cigarettes 1 47.7 Started: 09/17/1977 Smokeless Tobacco: Never Alcohol Use Standard Drinks/Week Comments No 0 (1 standard drink = 0.6 oz pur e alcohol) Sex and Gender Information Value Date Recorded Sex Assigned at Not on file Legal Sex Male 3:28 AM EDT Gender Identity Not on file Sexual Orientation Not on file documented as of this encounter Progress Notes * Stoney Vasquez APRN - 05/12/2025 5:45 PM EDT Images from the original note were not included. Subjective: 05/12/2025 Pranav Cross 60 y.o. male. HPI: History of Present Illness The patient, a 60-year-old male, presents for evaluation of right shoulder discomfort. He reports experiencing pain in his right shoulder for approximately six months, with no identifiable injury precipitating the symptoms. The pain occasionally radiates distally down his arm. His primary care physician, Dr. Chang, administered two corticosteroid injections into the affected shoulder. Additionally, the patient sought child caregiver, where he was informed that his shoulder was misaligned but not dislocated. He has no history of diabetes mellitus. His current medication regimenincludes daily administration of low- dose aspirin and clopidogrel (Plavix). The patient has a history of left shoulder issues, for which he underwent magnetic resonance imaging (MRI) that revealed a rotator cuff tear. However, the pain in his left shoulder has since resolved. He was last evaluated several years ago for a foot-related condition. Objective: PHYSICAL EXAMINATION: General: Well appearing with appropriate affect. No acute distress. Head/neck: Normocephalic. Range of motion of the neck: Easy without discomfort. Skin: Skin warm and dry. Color natural. Neuro: Alert and oriented to person, place, and time. Normal neurosensory response to touch. Pulmonary: Chest expansion appears symmetric and unlabored. Cardiovascular: No signs of peripheral edema. Lymphatic: No signs of lymphangitis. Musculoskeletal: Physical Exam - Musculoskeletal: - Right shoulder: - Mild diffuse tenderness along the superior lateral upper shoulder - Pain with Neer and impingement tests - Slight weakness with maneuver - Negative belly press and liftoff maneuver - No gross instability Assessment and Plan: Assessment & Plan 1. Calcific rotator cuff tendinitis: - Experiencing right shoulder pain for approximately 6 months - X-rays from 05/12/2025 show early calcific disease at the rotator cuff insertion site - Previous treatments: 2 steroid injections, oral steroids, home exercises, child caregiver (without significant improvement) - MRI will be ordered to confirm diagnosis and check for underlying rotator cuff tear - MRI results will guide further treatment options (including surgery or less aggressive interventions) - MRI will be scheduled, and patient will be contacted by butcher's assistant to arrange appointment - Advised to continue home exercises and avoid activities that exacerbate pain - Discussed risks and benefits of MRI and potential surgical intervention - Mentioned alternative treatments (e.g., physical therapy) depending on MRI findings Follow-up: - Patient will follow up after MRI to review results and discuss further treatment options Radiology/Laboratory Results: Results - Imaging: - X-ray of the right shoulder (05/12/2025): - No acute fractures or dislocations - Early calcific disease at the rotator cuff insertion site Please note that this aircraft engine mechanic was created using voice recognition software. Any errors are unintentional and may be due to voice recognition aircraft engine mechanic. The provider informed the patient (or legal bottling equipment sales representative) on the use of the ambient listening artificial intelligence tool, [employer] to obtain consent to its use. It was explained that this AI tool processes the conversation to generate a clinical note with the expected benefit of improved accuracy with a goal of improving the encounter experience for the patient and provider.?The provider explained that the medical information captured by the AI tool would be protected by applicable privacy laws. The patient was given an opportunity to ask questions and opt out of proceeding with the use of the AI tool. After being informed of such information, the patient (or legal bottling equipment sales representative), and each individual in attendance with the patient, consented to the use of the AI tool. Stoney Vasquez APRN documented in this encounter Plan of Treatment Upcoming Encounters Date Type Department Care Team (Late st Contact Info) Description 05/27/2025 9:00 AM EDT Office Visit [address] [address] Ellis Hernández MD [address] [place] [address] 07/17/2025 1:00 PM EDT Office Visit [facility] [address] [place] [address] Beto Siegel MD [address] [place] [address] Scheduled Orders Name Type Priority Associated Diagnoses Orde r Schedule MRI SHOULDER RIGHT WO CONTRAST Imaging Routine Calcific tendinitis of right shoulder 1 Occurrences starting 05/12/2025 until 05/12/2026 [place] SERVICES PROVIDED OFFICE OTH/THN REG SCHED HOURS [place] Charge Routine Calcific tendinitis of right shoulder Ordered: 05/12/2025 documented as of this encounter Results * XR SHOULDER RIGHT 3 VIEWS (05/12/2025 5:59 PM EDT) Narrative Genericuser, Matthew - 05/12/2025 5:59 PM EDT Please see physician's note from office encounter for x-ray imaging result Stoney Vasquez APRN IMG DIAGNOSTIC IMAGING ORDERAB LES Final Result documented in this encounter Visit Diagnoses Diagnosis Calcific tendinitis of right shoulder- Primary Calcifying tendinitis of shoulder Right shoulder pain, unspecified chronicity documented in this encounter Care Teams Tar Processing Technician Relationship Specialty Start Date End Date Bruno Chang MD [facility] [address] [place] [address] PCP - General Family Medicine 02/19/12 documented as of this encounter
--- OUTSIDE RECORDS SUMMARY | 2025-05-12 18:00 | XMS_ITS | Encounter Summary ---
Author Organization [facility] Address [address] [place] [address] Care Team Providers Care Form Coverer Name Role Phone Bruno Chang MD Primary Care Provider [phone] Encounter Details Date Type Department Care Team (Latest Contact Info) Description 05/12/2025 6:00 PM EDT [place] [address] Stoney Vasquez APRN [address] [place] [address] [phone] Right shoulder pain, unspecified chronicity Social History [...] Description 05/27/2025 9:00 AM EDT Office Visit [address] [id number] Ellis Hernández MD [address] [place] [address] 07/17/2025 1:00 PM EDT Office Visit [facility] [address] [place] [address] Beto Siegel MD [address] [place] [address] documented as of this encounter Procedures Procedure [...] chronicity documented in this encounter Care Teams Form Coverer Relationship Specialty Start Date End Date Bruno Chang MD [address] [facility] [address] [place] [address] PCP - General Family Medicine 02/19/12 documented as of this encounter
--- OUTSIDE RECORDS SUMMARY | 2025-05-19 06:50 | XMS_ITS | Encounter Summary ---
Author Organization [facility] Address [address] [place] [address] Care Team Providers Care Ship Keeper Name Role Phone Provider, Unknown Primary Care Provider Unavaila ble Encounter Details Date Type Department Care Team (Late st Contact Info) Description 12/05/2018 [facility] [address] [place], [place] [address] Katie Guerrero RN [address] [phone] Social History Tobacco Use Types Packs/Day Years [...] on filedocumented in this encounter Care Teams Ship Keeper Relationship Specialty Start Date End Date Provider, Unknown PCP - General 12/05/18 documented as of this encounter
--- OUTSIDE RECORDS SUMMARY | 2025-05-19 06:50 | XMS_ITS | Clinical Summary ---
Author Organization [facility] Address [address] [place] [address] Care Team Providers Care Clinical Provider Trainer Name Role Phone Provider, Unknown Primary Care [...] Advance Directives For more information, please contact: [phone] * Full Code (Latest Code Status on File) Date Activated Date Inactivated Comments 12/05/2018 6:30 PM Care Teams Clinical Provider Trainer Relationship Specialty Start Date End Date Provider, Unknown PCP - General 12/05/18
--- OUTSIDE RECORDS SUMMARY | 2025-05-19 06:50 | XMS_ITS | Clinical Summary ---
Author Organization [facility] Address [address] [place] [address] Care Team Providers Care Axle Bearing Polisher Name Role Phone Unavailable Primary Care Provider [...]
--- OUTSIDE RECORDS SUMMARY | 2025-05-19 06:50 | XMS_ITS | Referral Summary ---
Author Organization [facility] Address [address] [place] [address]. [place] [address] Care Team Providers Care Spray Painter Name Role Phone Unavailable Primary Care Provider [...]
--- OUTSIDE RECORDS SUMMARY | 2025-05-19 06:50 | XMS_ITS | Clinical Summary ---
Author Organization [facility] Address [address] [facility] [place] [address] Phone Care Team Providers Care Dolly Operator Name Role Phone Bruno Chang MD Primary Care Provider +1 [phone] Allergies No known active allergies Medications allopurinol [...] stress test Iliac artery bleed, right Acute [place], inferior wall Cardiac arrest with ventricular fibrillation PEA (Pulseless electrical activity) ASHD (arteriosclerotic heart disease) Lactic acidosis Leukocytosis Aspiration pneumonia of right upper lobe Encounters Date Type Department Care Team Description 05/12/2025 6:00 [place] [address] Stoney Vasquez APRN Right shoulder pain, unspecified chronicity 05/12/2025 5:45 PM EDT Office Visit [facility] [place] [address] Stoney Vasquez APRN Calcific tendinitis of right shoulder (Primary Dx) 03/02/2025 [place] [address] Beto Siegel MD Medication Refill from Last 3 Months Immunizations Immunization Administration Dates Next Due Td, Unspecified Formulation 05/30/2013 Surgical History Surgery Date Site/Laterality Comments THROMBECTOMY 06/02/2016 Right REPAIR RIGHT FEMORAL ARTERY; Surgeon: Saravanan Garcias MD; Location: [facility] OR; Service: Vascular DENTAL SURGERY Full upper denture , bridge x 2 on bottom BACK SURGERY x 2 for herniated discs lower back KNEE ARTHROSCOPY 07/04/2018 Left LEFT KNEE ARTHROSCOPY PARTIAL LATERAL MENISCECTOMY, CHONDROPLASTY MEDIAL FEMORAL CONDYLE; Surgeon: Ellis Hernández MD; Location: [facility]; Service: Orthopedics KNEE SURGERY meniscus 2018 [...] Smoker 1 PPD since age 13 Hyperlipidemia [place] (myocardial infarction) (HCC) 2016 had stent x 1 for this Angina pectoris 2015 none since [place] in 2015 Arthritis carine knees Full dentures [...] Description 05/27/2025 9:00 AM EDT Office Visit [facility] [address] [place] [address] Ellis Hernández MD [address] [place] [address] 07/17/2025 1:00 PM EDT Office Visit [facility] [address] [place] [address], [place] [address] Beto Siegel MD [address] [place] [address] Health Maintenance Due Date Last Done Comments [...] this topic Medical Devices Implanted Type Area Junior Art Director Device Identifier Shelf Expiration Date Model / Serial / Lot Stent Xience Alpine Drug Eluting 3.5mm X 12mm - [id number] Implanted:Qty: 1 on 06/02/2016 by Sergio Bailey MD at [facility] N/A: [facility] LAB:VASC DEV [id number] / / [id number] Stent Xience Lillian Evrlmus Eluting Coronary 4.00mm X 33mm - [id number] Implanted:Qty: 1 on 11/28/2018 by John Wayne MD at [facility] N/A: [facility]CA [facility] LAB:VASC DEV [id number] / / [id number] Stent Xience Lillian Evrlmus Eluting Coronary 4.00mm X 23mm - [id number] Implanted:Qty: 1 on 11/29/2018 by John Wayne MD at [facility] N/A: RCA [employer] LAB:VASC DEV [id number] / / [id number] Stent Xience Lillian Evrlmus Eluting Coronary 4.00mm X 18mm - [id number] Implanted:Qty: 1 on 11/29/2018 by John Wayne MD at [facility] N/A: RCA [employer] LAB:VASC DEV [id number] / / [id number] Procedures Procedure Name Priority Date/Time Associated Diagnosis Comments XR SHOULDER RIGHT 3 VIEWS Routine 05/12/2025 5:59 PM EDT Right shoulder pain, unspecified chronicity from Last 3 Months Results * XR SHOULDER RIGHT 3 VIEWS (05/12/2025 5:59 PM EDT) Narrative Matthew Montemayor - 05/12/2025 5:59 PM EDT Please see physician's note from office encounter for x-ray imaging result Stoney Vasquez APRN IM DIAGNOSTIC IMAGING ORDERAB LES Final Result from Last 3 Months Insurance [employer] PPO GENERIC WORKERS' COMP GENERIC WORKERS' COMP ANTHEM PPO ANTH PPO ANTHEM PPO Advance Directives For more information, please contact: [phone] * Full Code (Latest Code Status on File) Date Activated Date Inactivated Comments 11/29/2018 12:07 AM 12/04/2018 6:07 PM * Full Code Date Activated Date Inactivated Comments 07/04/2018 4:43 PM 07/04/2018 10:02 PM * Full Code Date Activated Date Inactivated Comments 06/01/2016 11:49 PM 06/04/2016 7:26 PM Care Teams Dolly Operator Relationship Specialty Start Date End Date Bruno Chang MD [address] [facility] [address] [place] [address] PCP - General Family Medicine 02/19/12
--- OUTSIDE RECORDS SUMMARY | 2025-05-19 06:50 | XMS_ITS | Encounter Summary ---
Author Organization [facility] Address [address] [place] [id number] Care Team Providers Care Speed Reading Teacher Name Role Phone Provider, Unknown Primary Care Provider Unavaila ble Encounter Details Date Type Department Care Team (Late st Contact Info) Description 12/05/2018 [facility] [address] [place], [place] [id number] Dominic Wray MD [id number] [address] Social History Tobacco Use Types [...] on filedocumented in this encounter Care Teams Speed Reading Teacher Relationship Specialty Start Date End Date Provider, Unknown PCP - General 12/05/18 documented as of this encounter
--- NOTE | 2025-05-19 07:00 | MR_ITS ---
FINAL REPORT CLINICAL HISTORY: RT shoulder pain. PAIN RADIATES UP SIDE OF NECK. NO INJURY OR TRAUMA. LIMITED ROM COMPARISON: None FINDINGS: Multi planar MR imaging of the right shoulder was performed. There is heterogeneous abnormal signal of the distal supraspinatus tendon, with a large defect at the anterior insertion of the supraspinatus tendon consistent with a high-grade partial full-thickness tear, best seen on images 11 and 12 of series 5. There is abnormal fluid in the subacromial/subdeltoid bursa. There is a large tear of the anterior labrum. The posterior labrum is intact. The biceps tendon appears intact. There is moderate hypertrophic change of the acromioclavicular joint. There is abnormal marrow edema present in the distal clavicle. IMPRESSION: Large defect of the anterior insertion of the supraspinatus tendon consistent with a high-grade partial full-thickness tear as described. Large tear of the anterior labrum. Reviewed, Interpreted and Dictated by Ezequiel Duarte MD Transcribed by Rhiannon Hernandez Authenticated and [facility]
== END 2025-05-19 23:59 | disposition home or self-care (01) ==
LOC: RAD 06:49
PROVIDERS: PCP Family Medicine; Visit Provider Family Medicine
DX: S43.491A Other sprain of right shoulder joint, initial encounter (principal); M77.9 Enthesopathy, unspecified; R93.6 Abnormal findings on diagnostic imaging of limbs
CPT/HCPCS: 73221